=== PATIENT | male | born 1955 | race Caucasian/White ===

== ENCOUNTER 2016-12-08 02:07 | Emergency (ER) | payer MEDICARE ==
[~2016-12-08] VITALS: Ht 195.6 cm; Wt 133.6 kg
[~2016-12-08 02:07] MED LIST: TRAMADOL HCL50 MG OR
[2016-12-08] MEDS ORDERED: LISINOPRIL20 MG PO (02:35)
[2016-12-08] MEDS ORDERED: DOXYCYCL HYC100 MG PO (02:35)
[2016-12-08] MEDS ORDERED: PRILOSEC20 MG PO (02:36)
[2016-12-08] MEDS ORDERED: METFORMIN500 MG PO (02:38)
[2016-12-08] MEDS ORDERED: AMLODIPINE5 MG PO (02:39)
[2016-12-08] MEDS ORDERED: MAXIDE1 COMBO PO (02:39)
[2016-12-08] MEDS ORDERED: LOPID600 MG PO (02:40)
[2016-12-08] MEDS ORDERED: FOLIC ACID1 MG PO (02:41)
[2016-12-08] MEDS ORDERED: IBUPROFEN600 MG PO (05:20)
[2016-12-08 05:40] VITALS: BP 134/77
== END 2016-12-08 05:45 | disposition home or self-care (01) ==
LOC: ED 02:07
DX: M77.12 Lateral epicondylitis, left elbow (principal); M25.522 Pain in left elbow; Y92.007 Garden or yard of unspecified non-institutional (private) residence as the place of occurrence of the external cause; W22.09XA Striking against other stationary object, initial encounter; Y92.810 Car as the place of occurrence of the external cause

== ENCOUNTER 2020-03-21 13:14 | Emergency (ER) | payer MEDICARE ==
[~2020-03-21] VITALS: Ht 195.6 cm; Wt 90.0 kg
[~2020-03-21 13:14] MED LIST changes: +AMLODIPINE5 MG PO; +B121000 MCG; +BUPROPION150 M3 PO; +DOCU SOFT100 MG PO; +DOXYCYCL HYC100 MG PO; +FOLIC ACID1 MG PO; +HYDROCODONE/ACE1 TAB PO; +IBUPROFEN600 MG PO; +LISINOPRIL20 MG PO; +LOPID600 MG PO; +MAXIDE1 COMBO PO; +METFORMIN500 MG PO; +PRILOSEC20 MG PO; +SENNA8.6 MG PO; +TAMSULOSIN0.4 MG PO
[2020-03-21 14:43] LABS: HEMOGLOBIN 10.7 g/dl (14.0-18.0); IMMATURE GRANULOCYTES 0.8 % (0.0-5.0); MEAN CELL VOLUME 92.2 fL CALC (80.0-100.0); MEAN CORPUSCULAR HGB 29.8 pG CALC (26.0-32.0); MEAN CORPUSCULAR HGB CONC 32.3 g/dL CAL (32.0-36.0); NEUT# 3.07 thou/uL (1.82-7.42); RED BLOOD COUNT 3.59 mill/uL (4.70-6.10); RED CELL DISTRI WIDTH 14.6 % (11.5-15.5)
[2020-03-21 14:44] LABS: HEMATOCRIT 33.1 % (39.0-50.0)
[2020-03-21] MEDS ORDERED: HYDROCHLOROTHIA50 MG PO (14:58)
[2020-03-21 15:00] LABS: ALKALINE PHOSPHATASE 75 u/l (38-126); ANION GAP 16 (6-22 (CALC)); BUN 24 mg/dL (8-23); BUN/CREATININE RATIO 34 (12-20 (CALC)); CARBON DIOXIDE 24 mmol/l (22-30); CHLORIDE 103 mmol/l (95-108); CREATININE 0.7 mg/dL (0.7-1.3); GFR > 60 ML/MIN (>=60 (CALC)); GFR FOR AFR.AMER. > 60 ML/MIN (>=60 (CALC)); LIPASE 460 u/l (23-300); POTASSIUM 4.4 mmol/l (3.5-5.1); SODIUM 138 mmol/l (137-146); TOTAL PROTEIN 7.5 g/dL (6.3-8.2)
[2020-03-21 15:05] LABS: ALBUMIN 4.6 g/dL (3.2-5.0); BILIRUBIN, TOTAL 0.4 mg/dL (0.0-1.4); SGOT/AST 43 u/l (19-48)
[2020-03-21] MEDS ORDERED: ONDANSETRON4 MG PO (15:16)
[2020-03-21 15:57] VITALS: BP 113/47
== END 2020-03-21 15:55 | disposition home or self-care (01) ==
LOC: ED 13:14
PROVIDERS: Family Medicine
DX: S32.10XA Unspecified fracture of sacrum, initial encounter for closed fracture (principal); S32.2XXA Fracture of coccyx, initial encounter for closed fracture; R11.2 Nausea with vomiting, unspecified; R06.02 Shortness of breath; I10 Essential (primary) hypertension; E11.9 Type 2 diabetes mellitus without complications; W18.30XA Fall on same level, unspecified, initial encounter; Y92.009 Unspecified place in unspecified non-institutional (private) residence as the place of occurrence of the external cause; Z89.512 Acquired absence of left leg below knee; Z79.84 Long term (current) use of oral hypoglycemic drugs; Z20.828 Contact with and (suspected) exposure to other viral communicable diseases

== ENCOUNTER 2021-08-19 10:45 | Emergency (ER) | payer MEDICARE ==
[~2021-08-19] VITALS: Ht 195.6 cm; Wt 110.0 kg
[~2021-08-19 10:45] MED LIST changes: +HYDROCHLOROTHIA50 MG PO; +ONDANSETRON4 MG PO
[2021-08-19 11:35] LABS: HEMATOCRIT 37.1 % (39.0-50.0); HEMOGLOBIN 12.3 g/dl (14.0-18.0); IMMATURE GRANULOCYTES 0.7 % (0.0-5.0); MEAN CELL VOLUME 95.1 fL CALC (80.0-100.0); MEAN CORPUSCULAR HGB 31.5 pG CALC (26.0-32.0); MEAN CORPUSCULAR HGB CONC 33.2 g/dL CAL (32.0-36.0); NEUT# 5.88 thou/uL (1.82-7.42); RED BLOOD COUNT 3.9 mill/uL (4.70-6.10); RED CELL DISTRI WIDTH 14.1 % (11.5-15.5)
[2021-08-19 11:50] LABS: ALBUMIN 4.6 g/dL (3.2-5.0); ALKALINE PHOSPHATASE 75 u/l (38-126); ANION GAP 16 (6-22 (CALC)); BILIRUBIN, TOTAL 0.5 mg/dL (0.0-1.4); BUN 27 mg/dL (8-23); BUN/CREATININE RATIO 35 (12-20 (CALC)); CARBON DIOXIDE 29 mmol/l (22-30); CHLORIDE 99 mmol/l (95-108); CREATININE 0.8 mg/dL (0.7-1.3); GFR > 60 ML/MIN (>=60 (CALC)); GFR FOR AFR.AMER. > 60 ML/MIN (>=60 (CALC)); POTASSIUM 4.3 mmol/l (3.5-5.1); SGOT/AST 48 u/l (19-48); SODIUM 140 mmol/l (137-146); TOTAL PROTEIN 8.5 g/dL (6.3-8.2)
[2021-08-19] MEDS ORDERED: AMOX/K CLAV875 M1 PO (12:34)
[2021-08-19] MEDS ORDERED: ZPAK PO (12:34)
[2021-08-19] MEDS ORDERED: PROAIR HFA108 MCG/AC PO (12:34)
[2021-08-19] MEDS ORDERED: TAM75CAP PO (12:34)
[2021-08-19 12:50] VITALS: BP 196/82
== END 2021-08-19 12:50 | disposition left against medical advice (07) ==
LOC: ED 10:45 → ED-I 11:47 → ED 12:50
PROVIDERS: Family Medicine
DX: J11.1 Influenza due to unidentified influenza virus with other respiratory manifestations (principal); J44.1 Chronic obstructive pulmonary disease with (acute) exacerbation; I11.0 Hypertensive heart disease with heart failure; I50.9 Heart failure, unspecified; E11.9 Type 2 diabetes mellitus without complications; Z91.19 Patient's noncompliance with other medical treatment and regimen; Z89.512 Acquired absence of left leg below knee; Z79.84 Long term (current) use of oral hypoglycemic drugs; Z20.822 Contact with and (suspected) exposure to COVID-19

== ENCOUNTER 2022-03-18 13:51 | Emergency (ER) | payer MEDICARE ==
[~2022-03-18] VITALS: Ht 195.6 cm; Wt 127.0 kg
[~2022-03-18 13:51] MED LIST changes: +AMOX/K CLAV875 M1 PO; +CEPHALEXIN500 MG PO; +HYDROCODONE BIT10 MG; +PROAIR HFA108 MCG/AC PO; +TAM75CAP PO; +ZPAK PO
[2022-03-18 14:22] LABS: HEMOGLOBIN 12.4 g/dl (14.0-18.0); MEAN CELL VOLUME 92.5 fL CALC (80.0-100.0); MEAN CORPUSCULAR HGB 30.2 pG CALC (26.0-32.0); MEAN CORPUSCULAR HGB CONC 32.6 g/dL CAL (32.0-36.0); NEUT# 4.32 thou/uL (1.82-7.42); RED BLOOD COUNT 4.11 mill/uL (4.70-6.10); RED CELL DISTRI WIDTH 13.6 % (11.5-15.5)
[2022-03-18 14:42] LABS: ALBUMIN 4.5 g/dL (3.2-5.0); ALKALINE PHOSPHATASE 68 u/l (38-126); ANION GAP 15 (6-22 (CALC)); BILIRUBIN, TOTAL 0.4 mg/dL (0.0-1.4); BUN 21 mg/dL (8-23); BUN/CREATININE RATIO 26 (12-20 (CALC)); CARBON DIOXIDE 26 mmol/l (22-30); CHLORIDE 101 mmol/l (95-108); CREATININE 0.8 mg/dL (0.7-1.3); GFR FOR AFR.AMER. > 60 ML/MIN (>=60 (CALC)); GFR OTHER RACES > 60 ML/MIN (>=60 (CALC)); LIPASE 104 u/l (23-300); POTASSIUM 4.3 mmol/l (3.5-5.1); SGOT/AST 32 u/l (19-48); SODIUM 138 mmol/l (137-146)
[2022-03-18 14:53] LABS: MYOGLOBIN 37 ng/mL (0 - 121)
[2022-03-18] MEDS ORDERED: MEDDOSEPAK PO (15:48)
[2022-03-18 16:02] VITALS: BP 144/67
== END 2022-03-18 16:12 | disposition left against medical advice (07) ==
LOC: ED 13:51
PROVIDERS: Nurse Practitioner
DX: R07.9 Chest pain, unspecified (principal); U07.1 COVID-19; R19.7 Diarrhea, unspecified; R06.02 Shortness of breath; R05.9 Cough, unspecified; I10 Essential (primary) hypertension; E11.9 Type 2 diabetes mellitus without complications; Z89.512 Acquired absence of left leg below knee; Z91.19 Patient's noncompliance with other medical treatment and regimen; Z79.84 Long term (current) use of oral hypoglycemic drugs

== ENCOUNTER 2022-06-25 06:44 | Day surgery (SDC) | payer MEDICARE ==
[~2022-06-25] VITALS: Ht 195.6 cm; Wt 125.6 kg
[~2022-06-25 06:44] MED LIST changes: +MEDDOSEPAK PO; +MULTI COMPLT PO; +OZEMPIC2 MG/1.5 M SC
[2022-06-25 08:51] VITALS: BP 124/72
== END 2022-06-25 09:10 | disposition home or self-care (01) ==
LOC: ENDO 06:44
PROVIDERS: ATTEND Surgery
PROC: 0DJD8ZZ Inspection of Lower Intestinal Tract, Via Natural or Artificial Opening Endoscopic (ICD-10-PCS; principal; 2022-06-25)
DX: R19.5 Other fecal abnormalities (principal); K64.8 Other hemorrhoids; I10 Essential (primary) hypertension; E11.9 Type 2 diabetes mellitus without complications; K21.9 Gastro-esophageal reflux disease without esophagitis; E78.00 Pure hypercholesterolemia, unspecified; Z89.512 Acquired absence of left leg below knee

== ENCOUNTER 2024-09-05 11:59 | Emergency (ER) | payer MEDICARE ==
[~2024-09-05] VITALS: Ht 195.6 cm; Wt 124.0 kg
[~2024-09-05 11:59] MED LIST changes: +CARVEDILOL3.125 MG PO; +ELIQUIS5 MG PO
[2024-09-05 12:12] VITALS: BP 141/74
[2024-09-05 12:30] VITALS: BP 133/64
[2024-09-05 13:17] VITALS: BP 133/64
== END 2024-09-05 13:15 | disposition home or self-care (01) ==
LOC: ED 11:59
DX: S20.212A Contusion of left front wall of thorax, initial encounter (principal); I10 Essential (primary) hypertension; E11.9 Type 2 diabetes mellitus without complications; W18.39XA Other fall on same level, initial encounter; Z89.512 Acquired absence of left leg below knee; Z79.84 Long term (current) use of oral hypoglycemic drugs; Z79.85 Long-term (current) use of injectable non-insulin antidiabetic drugs

== ENCOUNTER 2024-09-09 01:23 | Emergency (ER) | payer MEDICARE ==
[~2024-09-09] VITALS: Ht 195.6 cm; Wt 125.0 kg
[2024-09-09 01:34] VITALS: BP 142/66
[2024-09-09 01:46] VITALS: BP 130/61
[2024-09-09 02:01] VITALS: BP 122/63
[2024-09-09] MEDS ORDERED: oxyCODONE 5MG/ ACETAMINOPHEN 325MG TAB PO ONE (03:20)
[2024-09-09] MEDS ORDERED: PERCOCET 5/325M1 TAB PO (03:21)
[2024-09-09 03:26] VITALS: BP 130/61
== END 2024-09-09 03:47 | disposition home or self-care (01) ==
LOC: ED 01:23
DX: S22.42XA Multiple fractures of ribs, left side, initial encounter for closed fracture (principal); E11.610 Type 2 diabetes mellitus with diabetic neuropathic arthropathy; I10 Essential (primary) hypertension; W01.198A Fall on same level from slipping, tripping and stumbling with subsequent striking against other object, initial encounter; Y92.009 Unspecified place in unspecified non-institutional (private) residence as the place of occurrence of the external cause; Z79.85 Long-term (current) use of injectable non-insulin antidiabetic drugs; Z89.512 Acquired absence of left leg below knee; Z79.84 Long term (current) use of oral hypoglycemic drugs

== ENCOUNTER 2024-09-30 11:55 | Emergency (ER) | payer MEDICARE ==
[~2024-09-30] VITALS: Ht 195.6 cm; Wt 121.0 kg
[~2024-09-30 11:55] MED LIST changes: +PERCOCET 5/325M1 TAB PO
[2024-09-30 12:15] VITALS: BP 160/62
[2024-09-30] MEDS ORDERED: IPRATROPIUM-Albuterol 0.5MG-2.5MG/3 ML NEB ONE (12:30)
[2024-09-30] MEDS ORDERED: FUROSEMIDE 40 MG/4 ML SDV IV ONE (12:30)
[2024-09-30 12:31] VITALS: BP 157/61
[2024-09-30 13:01] VITALS: BP 139/67
[2024-09-30 13:16] LABS: BASO% 0.5 % (0-3); EOS% 2.2 % (0-8); IMMATURE GRANULOCYTES 0.3 % (0.0-5.0); LYMPH% 18.9 % (15-41); MEAN CELL VOLUME 94.8 fL CALC (80.0-100.0); MEAN CORPUSCULAR HGB 29.4 pG CALC (26.0-32.0); MONO% 8.1 % (2-13); NEUT# 4.06 thou/uL (1.82-7.42); RED BLOOD COUNT 2.86 mill/uL (4.70-6.10)
[2024-09-30 13:19] LABS: D-DIMER 1.66 mg/L (0.19-0.60)
[2024-09-30 13:32] LABS: BILIRUBIN, TOTAL 0.3 mg/dL (0.2-1.3); CREATININE 0.7 mg/dL (0.7-1.3); HEMATOCRIT 27.1 % (39.0-50.0); HEMOGLOBIN 8.4 g/dl (14.0-18.0); POTASSIUM 5.1 mmol/l (3.5-5.1); TOTAL PROTEIN 7.2 g/dL (6.3-8.2)
[2024-09-30 13:33] LABS: ALBUMIN 3.5 g/dL (3.2-5.0); PROTHROMBIN TIME 11.1 SECONDS (9.0-12.5)
[2024-09-30] MEDS ORDERED: cefTRIAXone SODIUM 2 GM in SODIUM CHLORIDE 0.9% 100 ML IV ONE (14:15)
[2024-09-30] MEDS ORDERED: AMOXICILLIN & POT CLAVULANATE 500 MG/TAB PO ONE (14:30)
[2024-09-30] MEDS ORDERED: AMOX/K CLAV875 M1 PO (14:55)
[2024-09-30 15:11] VITALS: BP 139/67
== END 2024-09-30 15:16 | disposition left against medical advice (07) ==
LOC: ED 11:55
PROVIDERS: Clinical Nurse Specialist Emergency
DX: R06.02 Shortness of breath (principal); I10 Essential (primary) hypertension; E11.610 Type 2 diabetes mellitus with diabetic neuropathic arthropathy; Z53.29 Procedure and treatment not carried out because of patient's decision for other reasons; Z89.512 Acquired absence of left leg below knee; Z79.84 Long term (current) use of oral hypoglycemic drugs; Z79.85 Long-term (current) use of injectable non-insulin antidiabetic drugs
CPT/HCPCS: J0696; J1940